=== PATIENT | female | born 1950 | race Caucasian/White ===

== ENCOUNTER 2017-08-02 13:56 | Emergency (ER) | payer OTHER ==
[~2017-08-02] VITALS: Ht 171.4 cm; Wt 81.3 kg
[2017-08-02 18:14] LABS: TROP-I INTERPRETATION NEGATIVE; TROPONIN-I < 0.01 ng/mL (0.0-0.30)
[2017-08-02] MEDS ORDERED: ATIVAN0.5 MG PO (18:25)
[2017-08-02 18:39] VITALS: BP 122/86
== END 2017-08-02 18:53 | disposition home or self-care (01) ==
LOC: EME 13:56
PROVIDERS: Physician Assistant
DX: R06.00 Dyspnea, unspecified (principal); Z91.040 Latex allergy status
CPT/HCPCS: 84484; 85379; 93005; 99281; 99284